=== PATIENT | male | born 1985 | race Two or more races ===

== ENCOUNTER → 2019-06-27 | Emergency (ER) | payer SELFPAY ==
[~2019-06-27] VITALS: Ht 165.1 cm; Wt 70.8 kg
[~2019-06-27] MED LIST: IBUPROFEN600 MG ORAL; Lidocaine 1% Plain 30 ml INJ ONE; Tetanus/Diptheria/Pertussis IM ONE; Tylenol #3 tab (300mg/30mg) PO ONE
[2019-06-27 02:24] VITALS: BP 139/106
--- NOTE | 2019-06-27 02:24 | NUR ---
ED Nurse Note: Patient brought in by RA from street due to pain on right thumb possible dislocation per EMS report. As per patient he fell while riding skateboard and took 3 bottles of beer. Patient is noted with small wound on his right lower leg. Alert and oriented, verbally responsive. Breathing even and unlabored. VSS.
--- NOTE | 2019-06-27 03:04 | NUR ---
ED Nurse Note: Xray done at bedside.
--- NOTE | 2019-06-27 03:40 | NUR ---
Day still in EDM - 06/27/19 at 0419 by [facility] ED Nurse Note: at bedside for finger trap application.
--- NOTE | 2019-06-27 04:24 | NUR ---
ED Nurse Note: Xray #2 done at bedside.
[2019-06-27 04:29] VITALS: BP 132/88
--- NOTE | 2019-06-27 04:32 | NUR ---
ED Nurse Note: Naren EMT at bedside for thumb spica application.
--- NOTE | 2019-06-27 05:04 | Emergency Room Report ---
History of Present Illness General Chief Complaint: Upper Extremity Injury Source: Patient Present Illness HPI 33-year-old male presents ED for evaluation. Brought in by EMS. States he was skateboarding tonight and fell and thinks he broke his thumb. EMS notes swelling and deformity to the right thumb. Denies any other injuries. Pain is throbbing, 10 out of 10, nonradiating. No other aggravating relieving factors. Denies any other associated symptoms Allergies: Coded Allergies: No Known Allergies (Unverified , 06/27/19) Patient History Past Medical History: none Past Surgical History: none Pertinent Family History: none Social History: Denies: smoking, alcohol use, drug use Immunizations: UTD Reviewed Nursing Documentation: PMH: Agreed; PSxH: Agreed Nursing Documentation-PMH Past Medical History: No Stated History Review of Systems All Other Systems: negative except mentioned in HPI Physical Exam Vital Signs Date Time Temp Pulse Resp B/P (MAP) Pulse Ox O2 Delivery O2 Flow Rate FiO2 06/27/19 02:22 98.8 81 18 06/27/19 02:22 139/106 (117) 99 Room Air Sp02 EP Interpretation: reviewed, normal General Appearance: no apparent distress, alert, GCS 15, non-toxic Head: normocephalic Eyes: bilateral eye normal inspection, bilateral eye PERRL ENT: normal ENT inspection Neck: normal inspection Respiratory: normal inspection Cardiovascular #1: normal inspection Gastrointestinal: normal inspection Rectal: deferred Genitourinary: no CVA tenderness Musculoskeletal: decreased range of motion, swelling - R thenar eminence. deformity to R thumb Neurologic: alert, oriented x3, responsive, motor strength/tone normal, sensory intact, speech normal Psychiatric: normal inspection Skin: no rash Lymphatic: normal inspection Procedures Splinting Splinting : Consent: Verbal Pre-Made Type: velcro Splint: thumb spica Pre-Proc Neuro Vasc Exam: normal Post-Proc Neuro Vasc Exam: normal Patient Tolerated: Well Complications: None Joint Reduction Joint Reduction : Consent: Verbal Joint Reduction Site: other - R thumb Procedural Sedation: No Reduction Attempts: One Pre-Procedure NV Exam: Yes Post-Procedure NV Exam: Yes Post Joint Reduction Film: joint reduced Patient Tolerated: Well Complications: None Medical Decision Making Diagnostic Impression: Primary Impression: Thumb dislocation Qualified Codes: S63.104A - Unspecified dislocation of right thumb, initial encounter ER Course Hospital Course 33-year-old male presents to ED complaining of R hand swelling Differential diagnoses include: Fracture, dislocation, sprain, contusion Clinical course Patient placed on stretcher. After initial history and physical I ordered pain medications, TDAP and x-rays of right hand Right hand x-ray shows dislocation of R thumb Hematoma block applied with lidocaine thumb reduced without complication. Repeat xray shows adequate reduction. placed in thumb spica splint I discussed findings with patient. Safe for discharge close outpatient follow- up. I will provide Ortho referrals Diagnosis - thumb dislocation Stable and discharged to home with prescription for Motrin. Followup with PMD/ ortho. Return to ED if symptoms recur or worsen Other X-Ray Diagnostic Results Other X-Ray Diagnostic Results : X-Ray ordered: R hand # of Views/Limited Vs Complete: 3 View Indication: Pain EP Interpretation: Yes Interpretation: no fractures, other - R thumb dislocation Impression: Other - R thumb dislocation Electronically Signed by: Electronically signed by Ishmael Hardin MD Last Vital Signs Date Time Temp Pulse Resp B/P (MAP) Pulse Ox O2 Delivery O2 Flow Rate FiO2 06/27/19 04:29 98.2 81 18 132/88 97 Room Air Status: improved Disposition: HOME, SELF-CARE Condition: Stable Scripts Ibuprofen* (MOTRIN*) 600 Mg Tablet 600 MG ORAL Q8H PRN for For Pain, #30 TAB 0 Refills Prov: Ishmael Hardin MD 06/27/19 Referrals: NOT CHOSEN IPA/,REFERRING (PCP) Ishmael Hardin MD Jun 27, 2019 05:04
--- NOTE | 2019-06-27 05:15 | NUR ---
ED Nurse Note: Patient seen sleeping in bed. Breathing even and unlabored. Afebrile. No further order at this time.
--- NOTE | 2019-06-27 05:23 | Diagnostic Imaging Report ---
3 VIEW RIGHT HAND: HISTORY: 33-year-old male with pain. COMPARISON: 3 view right hand earlier same date. FINDINGS: There has been interval reduction of the previously identified first MCP joint dislocation. There is a possible thin linear fracture fragment in the palmar aspect of the first MCP joint, and possible donor site involving the palmar base of the proximal phalanx of the thumb. There is probable minimal subcutaneous emphysema of the thenar eminence adjacent to the first metacarpal diaphysis. Remainder of the hand is unremarkable and unchanged. IMPRESSION: Status post successful reduction of the previously identified first MCP joint dislocation; possible tiny fracture fragment from the base of the proximal phalanx of the thumb in the palmar aspect of the first MCP joint.
[2019-06-27 06:03] VITALS: BP 135/90
[2019-06-27 06:27] VITALS: BP 135/90
--- NOTE | 2019-06-27 06:27 | NUR ---
ER DC Note: Pt cleared by ERMD for discharge. DC instructions/prescription was given and explained to pt and verbalized understanding of teachings. All medical devices such as ID band removed. Patient has thumb spica on dc. AAO x4, ambulatory and left with all personal belongings.
== END | disposition home or self-care (01) ==
LOC: EDBD 02:37 → EMR 03:45
DX: S63.104A Unspecified dislocation of right thumb, initial encounter (principal); Y92.9 Unspecified place or not applicable; V00.131A Fall from skateboard, initial encounter; Y93.51 Activity, roller skating (inline) and skateboarding; Z23 Encounter for immunization
CPT/HCPCS: 26700; 73130; 90471; 90715; 99283; J2001